=== PATIENT | male | born 1985 | race Caucasian/White ===

== ENCOUNTER 2017-03-31 20:00 | Emergency (ER) | payer MEDICAID ==
[~2017-03-31] VITALS: Ht 172.7 cm; Wt 61.2 kg
[2017-04-01 00:05] VITALS: BP 115/78
== END 2017-04-01 01:48 | disposition home or self-care (01) ==
LOC: ER 20:00
DX: R68.83 Chills (without fever) (principal); F12.10 Cannabis abuse, uncomplicated; R51 Headache; F17.210 Nicotine dependence, cigarettes, uncomplicated; Z88.0 Allergy status to penicillin; Z88.2 Allergy status to sulfonamides
CPT/HCPCS: 71046